=== PATIENT | male | born 1975 | race Caucasian/White ===

== ENCOUNTER 2023-11-14 12:46 | Emergency (ER) | payer OTHER, SELFPAY ==
[2023-11-14 12:49] VITALS: BP 147/100
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
[2023-11-14 13:34] VITALS: BMI 25.8
[2023-11-14 14:00] VITALS: BP 135/95
[2023-11-14] MEDS: KEFLEX 500 MG PO (14:38)
== END 2023-11-14 15:04 | disposition home or self-care (01) ==
LOC: EMR 12:46
PROVIDERS: EMERGENCY PHYSICIAN Emergency Medicine; FAMILY PHYSICIAN Internal Medicine
DX: S01.312A Laceration without foreign body of left ear, initial encounter (principal); V18.0XXA Pedal cycle driver injured in noncollision transport accident in nontraffic accident, initial encounter
CPT/HCPCS: 99285; 13152; 70450; 70486